=== PATIENT | female | born 1965 | race Caucasian/White ===

== ENCOUNTER 2018-07-09 19:27 | Emergency (ER) | payer MEDICAID ==
[~2018-07-09] VITALS: Ht 162.6 cm; Wt 63.6 kg
[2018-07-09 20:48] LABS: CLARITY,URINE CLEAR (Clear); COLOR,URINE YELLOW (Yellow); GLUCOSE, URINE NEGATIVE (Neg); KETONES,URINE NEGATIVE (Neg); LEUKOCYTE ESTERASE ,URINE NEGATIVE (Neg); NITRITES, URINE NEGATIVE (Neg); OCCULT BLOOD,URINE SMALL (Neg); PROTEIN,URINE NEGATIVE (Neg); URINE HCG NEGATIVE (NEG); UROBILINOGEN,URINE 0.2 E.U/dL (0.2-1.0)
[2018-07-09 20:55] LABS: URINE AMPHETAMINE SCREEN NEGATIVE (Neg); URINE BARBITUATE SCREEN NEGATIVE (Neg); URINE BENZODIAZEPINES SCREEN NEGATIVE (Neg); URINE CANNABINOID SCREEN NEGATIVE (Neg); URINE COCAINE SCREEN NEGATIVE (Neg); URINE METHADONE SCREEN NEGATIVE (Neg); URINE OPIATE SCREEN NEGATIVE (Neg); URINE PHENCYCLIDINE SCREEN NEGATIVE (Neg)
[2018-07-09 21:01] LABS: UA COLLECTION TYPE CLN CATCH MIDSTREAM
[2018-07-09 21:04] LABS: WBC,URINE 0-4 /HPF (0-4)
[2018-07-09 21:05] LABS: BACTERIA,URINE FEW /HPF (Neg); RBC,URINE 0-2 /HPF (0-2)
[2018-07-09 21:06] LABS: MUCUS STRANDS FEW /LPF (Neg); SQUAMOUS EPITHELIAL CELL,UR FEW /LPF (FEW)
[2018-07-09 21:27] LABS: BASOPHILS # (AUTO) 0.1 X10'3 (0-0.2); BASOPHILS % (AUTO) 1.3 % (0-1); EOSINOPHILS # (AUTO) 0.1 X10'3 (0-0.9); EOSINOPHILS % (AUTO) 1.2 % (0-6); HEMATOCRIT 37.4 % (35.0-45.0); HEMOGLOBIN 12.7 g/dl (12.0-16.0); LYMPHOCYTES # (AUTO) 1.9 X10'3 (1.1-4.8); LYMPHOCYTES % (AUTO) 26.6 % (21-51); MEAN CORPUSCULAR HGB CONC 33.9 % (33.0-36.5); MEAN CORPUSCULAR VOLUME 85.5 FL (78-98); MEAN PLATELET VOLUME 7.5 FL (7.4-10.4); MONOCYTES # (AUTO) 0.7 X10'3 (0-0.9); MONOCYTES % (AUTO) 9.9 % (2-12); NEUTROPHILS # (AUTO) 4.4 X10'3 (1.8-7.7); PLATELET COUNT 297 X10'3 (140-440); RED BLOOD COUNT 4.38 X10'6 (4.20-5.60); RED CELL DISTRIBUTION WIDTH 14.8 % (11.5-14.5); WHITE BLOOD COUNT 7.3 X10'3 (4.5-11.0)
--- NOTE | 2018-07-09 21:38 | NUR ---
Recvd report from Blanca MENDOZA, Pt is laying in bed on her left side, sleeping. RR even and unlabored no s/s distress.
[2018-07-09 21:41] LABS: ALANINE AMINOTRANSFERASE 101 U/L (12-78); ALBUMIN 3.6 G/DL (3.4-5.0); ALBUMIN/GLOBULIN RATIO 0.9 (1.1-1.5); ALKALINE PHOSPHATASE 90 IU/L (46-116); ANION GAP 9 (8-16); ASPARTATE AMINO TRANSFERASE 63 U/L (10-37); BILIRUBIN,TOTAL 0.3 MG/DL (0.1-1.0); BLOOD UREA NITROGEN 20 MG/DL (7-18); BUN/CREATININE RATIO 25.3 (6.6-38.0); CALCIUM 9.3 MG/DL (8.5-10.1); CHLORIDE 100 MMOL/L (99-107); CREATININE 0.79 MG/DL (0.40-0.90); GLUCOSE 91 MG/DL (70-104); POTASSIUM 3.9 MMOL/L (3.5-5.1); SODIUM 139 MMOL/L (135-145); TOTAL CARBON DIOXIDE 30.4 MMOL/L (24-32); TOTAL PROTEIN 7.5 G/DL (6.4-8.2); eGFR 76 ML/MIN
[2018-07-09 21:50] LABS: ETHANOL < 0.010 GM/DL (0.0-0.010)
[2018-07-09 21:51] LABS: ACETAMINOPHEN < 2.0 UG/ML (10-30)
--- NOTE | 2018-07-10 00:04 | NUR ---
PT LAYING ON HER RIGHT SIDE SLEEPING RR EVEN AND UNLABORED NO S/S DISTRESS.
--- NOTE | 2018-07-10 02:13 | NUR ---
PT LAYING ON HER RIGHT SIDE SLEEPING, RR EVEN AND UNLABORED NO S/S DISTRESS.
--- NOTE | 2018-07-10 04:38 | NUR ---
PT IS ASLEEP, LAYING ON HER LEFT SIDE UNDER THE BLANKETS, RR EVEN AND UNLABORED.
--- NOTE | 2018-07-10 06:30 | NUR ---
Asleep upon change of shift observation. In no distress. Undisturbed at this time.
--- NOTE | 2018-07-10 08:34 | NUR ---
Awakened for breakfast. Pleasant upon staff appraoch. Asked for and given coffee. Served breakfast. Patient became agitated. States "I don't want to eat." When asked what prevented her from eating, patient became agitated and stated "I have my reasons." Left alone. Patient then looked at her food tray and began to pick at her breakfast. [facility] called for patient. Camera in front of patient. Patient agreed to participate in interview.
--- NOTE | 2018-07-10 09:04 | NUR ---
Dr[facility] called to receive report on patient. Report given.
--- NOTE | 2018-07-10 09:30 | NUR ---
Patient participating in telepsyche evaluation without event. Cooperating with all questions and answered to the best of her ability.
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
[2018-07-10] MEDS ORDERED: OLAN5TAB3 PO (10:34)
[2018-07-10] MEDS ORDERED: OLAN5TAB3 IM ×2 (10:34)
[2018-07-10] MEDS ORDERED: OLANZapine **IM** 10 mg inj. IM PRN (10:50)
--- NOTE | 2018-07-10 12:50 | NUR ---
Awakened for lunch. Ate 75% of her meal on her own. Apologized for her behavior earlier this morning. "I don't know what happened to me earlier today but that ain't me." Patient is referring to her outburst in the AM when presented with breakfast. At that time patient exhibited paranoid behavior, yelling at staff "There ain't nobody gonna make me eat if I say no."
[2018-07-10] MEDS: OLANZapine 5mg rapidly disint. tablet PO SCH (13:34)
--- NOTE | 2018-07-10 17:18 | NUR ---
Slept for the remainder of the afternoon except to get up and use the bathroom times one. Returned to bed immediately afterwards.
--- NOTE | 2018-07-10 18:30 | NUR ---
Patient is in a low fowlers position in bed sleeping soundly. Q15 minute rounding is being done for patient safety.
--- NOTE | 2018-07-11 03:28 | NUR ---
This patient has only awoken once tonight. She got up and ambulated to the bathroom. On returning to bed she angerly stated "I'm going home." She got into bed and fell rapidlly to sleep. Patients bed is in view of the nursing station.
--- NOTE | 2018-07-11 07:44 | NUR ---
PT SLEEPING ON LEFT SIDE, RESPIRATIONS SPONTANEOUS, EVEN AND UNLABORED, NO S/S OF DISTRESS, DISCOMFORT OR AGITATION.
[2018-07-11] MEDS: OLANZapine 5mg rapidly disint. tablet PO SCH (08:17)
--- NOTE | 2018-07-11 08:24 | NUR ---
MEDICATED PT WITH MORNING MEDICATION PER ORDERS, BREAKFAST TRAY PLACED AT BEDSIDE, PT IS RESTING ON LEFT SIDE AT THIS TIME.
--- NOTE | 2018-07-11 09:56 | NUR ---
PT IS IN BED, APPEARS TO BE SLEEPING, SHE IS RESTING ON HER RIGHT SIDE, NO S/S OF DISTRESS NOTED, SPONTANEOUS EQUAL BRATHING
--- NOTE | 2018-07-11 10:47 | NUR ---
PT IS IN BED ON RIGHT SIDE, NO S/S OF DISTRESS NOTED, EVEN UNLABORED BREATHING
--- NOTE | 2018-07-11 11:35 | NUR ---
SPOKE TO JONEL AT [facility], SHE TOOK NURSE TO NURSE REPORT, WILL CALL [facility] WITH DECISION ON ACCEPTANCE
--- NOTE | 2018-07-11 12:17 | NUR ---
pt resting on left side, sheets over her head, no s/s of distress noted
--- NOTE | 2018-07-11 13:00 | NUR ---
PT IS SLEEPING ON HER RIGHT SIDE, NO S/S OF DISTRESS, EQUAL, REGULAR BREATHING NOTED, NO S/S OF DISTRESS
--- NOTE | 2018-07-11 13:41 | NUR ---
pt is resting on her right side, no s/s of distress
--- NOTE | 2018-07-11 14:37 | NUR ---
pt is in bed supine, equal regular breathing, no s/s of distress noted
--- NOTE | 2018-07-11 15:44 | NUR ---
PT IS SITTING UP IN BED, NO S/S OF DISTRESS NOTED, SHE IS CALM,
--- NOTE | 2018-07-11 16:47 | NUR ---
PT IS IN BED LAYING ON HER RIGHT SIDE, NO S/S OF DISTRESS NOTED
--- NOTE | 2018-07-11 17:54 | NUR ---
PT IS IN BED LAYING ON HER LEFT SIDE, WAS JUST UP WANDERING TRIED TO LEAVE UNIT
--- NOTE | 2018-07-11 20:30 | NUR ---
This patient was sleeping at shift change. She awoke around 2000 hours and ambulated to the bathroom. The patient is polite to staff. This patient tells this insurance underwriter sales that she is depressed but not suicidal at this time. She expresses concern about her family. "I just want to go home." Patient returns to sleep.
--- NOTE | 2018-07-12 04:00 | NUR ---
Patient is up to bathroom. She then returned to bed. Q15 minute rounding being done for patient safety.
--- NOTE | 2018-07-12 07:07 | NUR ---
Lying in bed sleeping. No distress noted.
--- NOTE | 2018-07-12 08:11 | NUR ---
Woke up to eat a little breakfast and then back to sleep.
[2018-07-12] MEDS: OLANZapine 5mg rapidly disint. tablet PO SCH (08:48)
--- NOTE | 2018-07-12 09:28 | NUR ---
Pt not willing to talk much. She answers all questions with "I have my reasons but I don't want to talk about it".
--- NOTE | 2018-07-12 11:06 | NUR ---
Pt went back to sleeping.
--- NOTE | 2018-07-12 12:32 | NUR ---
Sleeping on right side.
--- NOTE | 2018-07-12 14:07 | NUR ---
Pt has been accepted at [facility]. component assembler supervisor time set for 1445. Currently gathering belongings and getting pt ready for transfer.
--- NOTE | 2018-07-12 14:59 | NUR ---
Transfered to [facility] to Dr Kohler's care with all personal belongings.
== END 2018-07-12 15:03 ==
LOC: ER 19:28 → MERGE 19:28 → ER 07-12 15:03
DX: F28 Other psychotic disorder not due to a substance or known physiological condition (principal)
CPT/HCPCS: 36415; 80053; 80305; 80320; 80329; 81001; 81025; 84443; 85025; 99285